=== PATIENT | female | born 1950 | race Caucasian/White ===

== ENCOUNTER 2017-12-01 08:30 | Day surgery (SDC) | payer MEDICARE ==
[~2017-12-01] VITALS: Ht 152.4 cm; Wt 94.3 kg
[~2017-12-01 08:30] MED LIST: ADVIL MIGRAI200 M1 OR; ALLOPURINOL100 MG OR; ALLOPURINOL100 MG PO; AMOXICILLIN500 MG PO; ASPIRIN 81 LOW81 MG PO; BACLOFEN10 MG PO; BIAXIN500 M1 PO; BUPROPION150 M1 PO; CALCIUM + D600 MG OR; CALCIUM500 M5 PO; CIPROFLOXACN500 MG PO; CLARITIN10 M1 PO; CLONAZEPAM0.5 MG PO; CLONAZEPAM1 M1 OR; CLONAZEPAM1 M1 PO; COBAL-10001000 MCG IJ; CYANOCOBALAM1000 MCG IJ; CYANOCOBALAM1000 MCG IM; DIFLUCAN150 MG PO; E400400 UNIT OR; FISH OIL1000 MG PO; FISH OIL1400 MG PO; FLEXERIL5 M1 PO; FLONASE NASAL50 MCG; FLUTICASONE50 MCG; GARLIC1000 MG OR; HYDROCHLOROT25 MG PO; LAMICTAL100 M1 OR; LAMICTAL100 M1 PO; LAMICTAL150 M1 PO; LEVOTHROID88 MCG PO; LEVOTHYROXIN100 MC1 OR; LEVOTHYROXIN100 MC1 PO; LEVOTHYROXIN50 MC1 PO; LEVOTHYROXIN75 MC1 OR; LEVOTHYROXIN75 MC1 PO; LEVOTHYROXIN88 MC1 PO; LIPITOR10 M1 PO; LIPITOR20 M1 PO; LISINOP/HCTZ1 TAB PO; LISINOPRIL10 MG PO; LITHIUM CARB300 MG PO; LORAZEPAM0.5 MG PO; LOTRISON1 EX; LOVASTATIN20 MG PO; MACROBID100 MG PO; MAXEPA1000 M1 PO; MEDDOSEPAK PO; METRONIDAZOL500 MG PO; MIRTAZAPINE15 MG PO; NITROFURANTN100 MG PO; OMEGA 3340 MG OR; OMEPRAZOLE20 M1 PO; OMEPRAZOLE20 MG PO; PANTOPRAZOLE SO40 M1 PO; PEPCID20 MG PO; PRILOSEC20 MG PO; PROTONIX40 M2 PO; RISPERDAL0.25 MG PO; SIMVASTATIN20 MG OR; SIMVASTATIN20 MG PO; SYNTHROID88 MCG PO; TRAMADOL HCL50 MG PO; TRILEPTAL150 M1 PO; TYLENO1 OR; VITAMIN D2000 UNI1 OR; VITAMIN D50000 UNT OR; WELCHOL625 MG PO; ZETIA10 MG PO; ZITHROMAX500 MG PO; ZPAK OR; [UNRECOGNIZED DRUG - OTHER] PO; [UNRECOGNIZED DRUG - OTHER] PO; [UNRECOGNIZED DRUG - OTHER] XX
[2017-12-01 11:12] VITALS: BP 139/63
== END 2017-12-01 11:35 | disposition home or self-care (01) ==
LOC: ENDO 08:30
PROVIDERS: ATTEND Surgery
PROC: 0DJD8ZZ Inspection of Lower Intestinal Tract, Via Natural or Artificial Opening Endoscopic (ICD-10-PCS; principal; 2017-12-01)
DX: Z12.11 Encounter for screening for malignant neoplasm of colon (principal); K57.30 Diverticulosis of large intestine without perforation or abscess without bleeding

== ENCOUNTER 2019-07-25 08:52 | Inpatient (IN) | payer MEDICARE ==
[~2019-07-25] VITALS: Ht 152.4 cm; Wt 96.2 kg
[2019-07-25 10:06] LABS: HEMATOCRIT 40.1 % (37.0-47.0); HEMOGLOBIN 13.5 g/dl (12.0-16.0); IMMATURE GRANULOCYTES 0.7 % (0.0-5.0); MEAN CELL VOLUME 92.4 fL CALC (80.0-100.0); MEAN CORPUSCULAR HGB 31.1 pG CALC (26.0-32.0); MEAN CORPUSCULAR HGB CONC 33.7 g/L CALC (32.0-36.0); NEUT# 10.33 thou/uL (2.00-7.15); RED BLOOD COUNT 4.34 mill/uL (4.20-5.60)
[2019-07-25 10:19] LABS: ALBUMIN 4.8 g/dL (3.2-5.0); AMYLASE 120 u/l (30-110); BUN 20 mg/dL (8-23); BUN/CREATININE RATIO 15 (12-20 (CALC)); CARBON DIOXIDE 24 mmol/l (22-30); CHLORIDE 97 mmol/l (95-108); CREATININE 1.3 mg/dL (0.5-1.0); ETHYL ALCOHOL 0 mg/dl (0-30); GFR 41 ML/MIN (>=60 (CALC)); GFR FOR AFR.AMER. 49 ML/MIN (>=60 (CALC)); LIPASE 497 u/l (23-300); MAGNESIUM 2.3 mg/dL (1.6-2.3); SODIUM 133 mmol/l (137-146); TOTAL PROTEIN 7.9 g/dL (6.3-8.2)
[2019-07-25 10:20] LABS: ALKALINE PHOSPHATASE 143 u/l (38-126); ANION GAP 15 (6-22 (CALC)); BILIRUBIN, TOTAL 1.1 mg/dL (0.0-1.4); POTASSIUM 2.5 mmol/l (3.5-5.1); SGOT/AST 74 u/l (9-36)
[2019-07-25 10:38] LABS: URINE BLOOD DIPSTICK SMALL (NEGATIVE); URINE COLOR YELLOW; URINE GLUCOSE - DIPSTICK NEGATIVE (NEGATIVE); URINE KETONE TRACE mg/dL (NEGATIVE); URINE NITRITE - DIPSTICK NEGATIVE (Negative); URINE PROTEIN - DIPSTICK 100 mg/dL (NEG-TRACE); URINE UROBILINOGEN - DIPSTICK 0.2 E.U./dL (0.2)
[2019-07-25 10:42] LABS: BARBITURATES NEGATIVE (NEGATIVE); COCAINE NEGATIVE (NEGATIVE); METHADONE NEGATIVE (NEGATIVE); OXCYCODONE NEGATIVE (NEGATIVE); TETRAHYDROCANNABIONOL NEGATIVE (NEGATIVE); TRICYLIC ANTIDEPRESSANTS NEGATIVE (NEGATIVE)
[2019-07-25 10:50] LABS: URINE BILIRUBIN - DIPSTICK NEGATIVE (NEGATIVE); URINE LEUK ESTERASE MODERATE (NEGATIVE)
[2019-07-25 10:53] LABS: URINE EPITHELIAL CELLS FEW EPI/hpf (0-FEW); URINE SQUAMOUS EPITHELIAL CELL FEW EPI/hpf (0-FEW)
[2019-07-25 10:54] LABS: URINE BACTERIA FEW hpf
[2019-07-25 13:26] VITALS: BP 148/63
[2019-07-25 15:30] VITALS: BP 140/71
[2019-07-25 19:20] VITALS: BP 122/50
[2019-07-26 04:07] VITALS: BP 121/69
[2019-07-26 05:25] LABS: HEMATOCRIT 34.7 % (37.0-47.0); MEAN CELL VOLUME 94.3 fL CALC (80.0-100.0); MEAN CORPUSCULAR HGB 31.3 pG CALC (26.0-32.0); MEAN CORPUSCULAR HGB CONC 33.1 g/L CALC (32.0-36.0); RED BLOOD COUNT 3.68 mill/uL (4.20-5.60); RED CELL DISTRI WIDTH 12.9 % (11.5-15.5)
[2019-07-26 05:26] LABS: HEMOGLOBIN 11.5 g/dl (12.0-16.0)
[2019-07-26 05:48] LABS: ANION GAP 9 (6-22 (CALC)); BUN 11 mg/dL (8-23); BUN/CREATININE RATIO 13 (12-20 (CALC)); CARBON DIOXIDE 22 mmol/l (22-30); CHLORIDE 106 mmol/l (95-108); CREATININE 0.9 mg/dL (0.5-1.0); GFR > 60 ML/MIN (>=60 (CALC)); GFR FOR AFR.AMER. > 60 ML/MIN (>=60 (CALC)); POTASSIUM 2.5 mmol/l (3.5-5.1); SODIUM 135 mmol/l (137-146)
[2019-07-26 07:15] VITALS: BP 130/57
[2019-07-26 11:25] VITALS: BP 126/60
[2019-07-26 17:15] VITALS: BP 125/64
[2019-07-26 19:13] VITALS: BP 106/61
[2019-07-26 23:55] VITALS: BP 145/67
[2019-07-27 05:01] VITALS: BP 124/60
[2019-07-27 07:00] LABS: ANION GAP 9 (6-22 (CALC)); BUN 5 mg/dL (8-23); BUN/CREATININE RATIO 6 (12-20 (CALC)); CARBON DIOXIDE 20 mmol/l (22-30); CHLORIDE 112 mmol/l (95-108); CREATININE 0.8 mg/dL (0.5-1.0); GFR > 60 ML/MIN (>=60 (CALC)); GFR FOR AFR.AMER. > 60 ML/MIN (>=60 (CALC)); POTASSIUM 3.1 mmol/l (3.5-5.1); SODIUM 138 mmol/l (137-146)
[2019-07-27 08:38] VITALS: BP 126/63
[2019-07-27 11:00] VITALS: BP 105/63
[2019-07-27 14:25] VITALS: BP 126/63
[2019-07-27 18:46] VITALS: BP 123/43
[2019-07-28 00:23] VITALS: BP 140/74
[2019-07-28 03:55] VITALS: BP 114/74
[2019-07-28 07:39] LABS: ANION GAP 11 (6-22 (CALC)); BUN 5 mg/dL (8-23); BUN/CREATININE RATIO 6 (12-20 (CALC)); CARBON DIOXIDE 17 mmol/l (22-30); CHLORIDE 112 mmol/l (95-108); CREATININE 0.8 mg/dL (0.5-1.0); GFR > 60 ML/MIN (>=60 (CALC)); GFR FOR AFR.AMER. > 60 ML/MIN (>=60 (CALC)); POTASSIUM 3.3 mmol/l (3.5-5.1); SODIUM 137 mmol/l (137-146)
[2019-07-28 07:55] VITALS: BP 150/78
[2019-07-28 11:37] VITALS: BP 151/70
[2019-07-28 16:11] VITALS: BP 144/70
[2019-07-28 20:00] VITALS: BP 137/72
[2019-07-29] VITALS: BP 155/74
[2019-07-29 04:00] VITALS: BP 155/74
[2019-07-29 08:00] VITALS: BP 149/71
[2019-07-29 12:00] VITALS: BP 169/77
[2019-07-29] MEDS ORDERED: DOXYCYCL HYC100 M4 PO (16:44)
[2019-07-29 16:48] VITALS: BP 160/79
== END 2019-07-29 17:10 | disposition home or self-care (01) | DRG 92 ==
LOC: ED 08:52 → ED-I 11:00 → ED 11:26 → MS2 11:27
PROVIDERS: Nurse Practitioner Family; ADMIT Internal Medicine; ATTEND Internal Medicine
PROC: 3E0234Z Introduction of Serum, Toxoid and Vaccine into Muscle, Percutaneous Approach (ICD-10-PCS; principal; 2019-07-27)
DX: G92 Toxic encephalopathy (principal); N39.0 Urinary tract infection, site not specified; R11.2 Nausea with vomiting, unspecified; R19.7 Diarrhea, unspecified; T43.595A Adverse effect of other antipsychotics and neuroleptics, initial encounter; E86.0 Dehydration; E87.6 Hypokalemia; F31.9 Bipolar disorder, unspecified; I10 Essential (primary) hypertension; Z23 Encounter for immunization; R19.5 Other fecal abnormalities
CPT/HCPCS: J1650

== ENCOUNTER 2023-04-08 18:03 | Observation (INO) | payer MEDICARE ==
[2023-04-08] VITALS (14 sets, daily range): BP systolic 107–175; BP diastolic 59–112
[~2023-04-08] VITALS: Ht 152.4 cm; Wt 102.0 kg
[~2023-04-08 18:03] MED LIST changes: +DOXYCYCL HYC100 M4 PO
--- NOTE | 2023-04-08 18:15 | NUR ---
PT REPORT SHE IS SENT BY PCP R/T ELEVATED LITHIUM LEVEL THAT WAS DRAWN ON 04/06/23. PT HAS NO COMPLAINTS AT THIS TIME.
--- NOTE | 2023-04-08 19:30 | NUR ---
Reassessment of patient completed. No distress noted.
[2023-04-08 20:36] LABS: BASO% 0.2 % (0-3); EOS% 0.2 % (0-8); HEMOGLOBIN 12.6 g/dl (12.0-16.0); IMMATURE GRANULOCYTES 0.6 % (0.0-5.0); LYMPH% 17.5 % (15-41); MEAN CELL VOLUME 101.8 fL CALC (80.0-100.0); MEAN CORPUSCULAR HGB 32.1 pG CALC (26.0-32.0); MEAN CORPUSCULAR HGB CONC 31.5 g/dL CAL (32.0-36.0); MONO% 4.4 % (2-13); NEUT# 12.49 thou/uL (2.00-7.15); NEUT% 77.1 % (42-76); RED BLOOD COUNT 3.93 mill/uL (4.20-5.60); RED CELL DISTRI WIDTH 13.4 % (11.5-15.5)
[2023-04-08 20:46] LABS: ALBUMIN 4.4 g/dL (3.2-5.0); ALKALINE PHOSPHATASE 132 u/l (38-126); ANION GAP 13 (6-22 (CALC)); BILIRUBIN, TOTAL 0.8 mg/dL (0.02-1.3); BUN 15 mg/dL (8-23); BUN/CREATININE RATIO 17 (12-20 (CALC)); CARBON DIOXIDE 22 mmol/l (22-30); CHLORIDE 103 mmol/l (95-108); CREATININE 0.9 mg/dL (0.5-1.0); ETHYL ALCOHOL 0 mg/dl (0-30); GFR FOR AFR.AMER. > 60 ML/MIN (>=60 (CALC)); GFR OTHER RACES > 60 ML/MIN (>=60 (CALC)); POTASSIUM 3.5 mmol/l (3.5-5.1); SGOT/AST 53 u/l (9-36); SODIUM 135 mmol/l (137-146); TOTAL PROTEIN 7.5 g/dL (6.3-8.2)
[2023-04-08] MEDS ORDERED: LOSARTAN POTASS50 MG PO (21:36)
[2023-04-08] MEDS ORDERED: MEDDOSEPAK PO (21:39)
--- NOTE | 2023-04-08 22:03 | NUR ---
PATIENT PLACED ON INPATIENT BED
--- NOTE | 2023-04-08 22:08 | NUR ---
TRANSITION OF CARE REPORT TO MASOOD LAM
[2023-04-08 22:10] LABS: URINE BILIRUBIN - DIPSTICK Negative (NEGATIVE); URINE BLOOD DIPSTICK Negative (NEGATIVE); URINE GLUCOSE - DIPSTICK Negative (NEGATIVE); URINE KETONE Negative (NEGATIVE); URINE NITRITE - DIPSTICK Negative (Negative); URINE PH 6.5 (4.5-8.0); URINE PROTEIN - DIPSTICK Negative (NEG-TRACE); URINE UROBILINOGEN - DIPSTICK 0.2 E.U./dL (0.2)
[2023-04-08 22:11] LABS: URINE COLOR Yellow; URINE LEUK ESTERASE Small (NEGATIVE)
[2023-04-08 22:20] LABS: URINE SQUAMOUS EPITHELIAL CELL FEW EPI/hpf (0-FEW)
[2023-04-09] VITALS (76 sets, daily range): BP systolic 84–174; BP diastolic 53–132
--- NOTE | 2023-04-09 07:13 | NUR ---
report rec'd from tag machine operator rn
--- NOTE | 2023-04-09 08:05 | NUR ---
breakfast tray given to pt.
--- NOTE | 2023-04-09 08:09 | NUR ---
pt alert and oriented x 4. no apparent distress
--- NOTE | 2023-04-09 11:28 | NUR ---
pt in room waiting for inpatient bed. no apparent distress.
--- NOTE | 2023-04-09 18:00 | NUR ---
PT ARRIVED TO MED SURG RM [id number] FROM ER, REPORT RECEIVED. PT IS ALERT AND ORIENTED X3, PT HAS C/O HEADACHE AT 5/10 ON PAIN SCALE AT THIS TIME. IV SITE # 20 TO LAC CLEAN AND INTACT WITH D5 1/2 NS INFUSING @ 100 ML/HR. PT LUNGS CLEAR. ABD SOFT WITH ACTIVE BS. PT SKIN CLEAN AND INTACT. RLE EDEMA WITH +1 EDEMA AND LLE WITH +2 PITING EDEMA. PT AMBULATES WTH STANDBY ASSIST TO BATHROOM FOR TOILETING NEEDS. PT HAS CALL LIGHT WITHIN REACH AND SAFETY MEASURES IN PLACE AT THIS TIME.
--- NOTE | 2023-04-09 19:24 | NUR ---
PATIENT RESTING SPOUSE AT BEDSIDE. BP CHECKED. NO DISTRESS NOTED ON EXAM. CALL LIGHT WITHIN REACH.
[2023-04-10] VITALS (13 sets, daily range): BP systolic 123–183; BP diastolic 43–79
--- NOTE | 2023-04-10 00:10 | NUR ---
PATIENT SLEEPING NO CHANGES. NO DISTRESS NOTED. CALL LIGHT WITHIN REACH.
--- NOTE | 2023-04-10 03:54 | NUR ---
PATIENT SLEEPING NO CHANGES. CALL LIGHT WITHIN REACH.
[2023-04-10 05:21] LABS: HEMATOCRIT 38.7 % (37.0-47.0); HEMOGLOBIN 12.2 g/dl (12.0-16.0); MEAN CELL VOLUME 102.9 fL CALC (80.0-100.0); MEAN CORPUSCULAR HGB 32.4 pG CALC (26.0-32.0); MEAN CORPUSCULAR HGB CONC 31.5 g/dL CAL (32.0-36.0); RED BLOOD COUNT 3.76 mill/uL (4.20-5.60); RED CELL DISTRI WIDTH 13.3 % (11.5-15.5)
[2023-04-10 05:45] LABS: ALBUMIN 3.7 g/dL (3.2-5.0); ALKALINE PHOSPHATASE 134 u/l (38-126); ANION GAP 10 (6-22 (CALC)); BILIRUBIN, TOTAL 0.9 mg/dL (0.02-1.3); BUN 11 mg/dL (8-23); BUN/CREATININE RATIO 14 (12-20 (CALC)); CARBON DIOXIDE 25 mmol/l (22-30); CHLORIDE 105 mmol/l (95-108); CREATININE 0.8 mg/dL (0.5-1.0); GFR FOR AFR.AMER. > 60 ML/MIN (>=60 (CALC)); GFR OTHER RACES > 60 ML/MIN (>=60 (CALC)); MAGNESIUM 1.9 mg/dL (1.6-2.3); POTASSIUM 3.5 mmol/l (3.5-5.1); SGOT/AST 65 u/l (9-36); SODIUM 136 mmol/l (137-146); TOTAL PROTEIN 6.3 g/dL (6.3-8.2)
--- NOTE | 2023-04-10 07:05 | NUR ---
REPORT RECEIVED FROM DAYLINRN
--- NOTE | 2023-04-10 08:30 | NUR ---
PT RESTING IN SEMI FOWLERS POSITION,A&O X3;ASSESSMENT COMPLETED;PT DENIES ANY CURRENT PAIN OR DISCOMFORTS,PAIN SCALE AND REPORTING EDUCATED;RESPIRATIONS EVEN AND UNLABORED ON RA,CLEAR/DIMINISHED LUNG SOUNDS;ABDOMEN DISTENDED/SOFT ON PALPATION AND ACTIVE IN ALL 4 QUADRANTS;STRONG PEDAL PULSES;EDEMA NOTED TO BLE, ENCOURAGED ELEVATION;SKIN INTACT;TELE MONITORING IN PLACE;#20G TO RAC INFUSING D5 1/2 NS @ 100ML/HR,SITE APPEARS HEALTHY;PT DENIES ANY ADDITIONAL NEEDS AND IS ENCOURAGED TO CALL FOR ASSISTANCE IF NEEDED;FALL PRECAUTIONS IN PLACE WITH BED IN THE LOWEST POSITION AND CALL LIGHT IN REACH;FREQUENT ROUNDS MADE.
--- NOTE | 2023-04-10 11:37 | NUR ---
AT BEDSIDE DISCUSSING POC WITH PT.
--- NOTE | 2023-04-10 11:40 | NUR ---
PT RESTING IN SEMI FOWLERS POSITION WITH SPOUSE AT BEDSIDE;RESPIRATIONS EVEN AND UNLABORED ON RA;PT DENIES ANY CURRENT PAIN OR NEEDS;TELE MONITORING IN PLACE;IV SITE PATENT INFUSING WITH EASE PER ORDER;PT DENIES ANY ADDITIONAL NEEDS AND IS ENCOURAGED TO CALL FOR ASSISTANCE IF NEEDED;FALL PRECAUTIONS IN PLACE WITH BED IN THE LOWEST POSITION AND CALL LIGHT IN REACH;FREQUENT ROUNDS MADE.
--- NOTE | 2023-04-10 15:14 | NUR ---
PT REPORTS HEADACHE PAIN RATING 4/10 ON THE PAIN SCALE AND REQUESTS PRN TYLENOL. PT MEDICATED WITH PRN TYLENOL 650MG PO AT THIS TIME.FREQUENT ROUNDS MADE.
--- NOTE | 2023-04-10 15:20 | NUR ---
PT BLOOD PRESSURE ASSESSED AT THIS TIME DUE TO HEADACHE PAIN AND INCREASED TREMORS. BP 183/76 HR 74. NOTIFIED AND NEW ORDERS RECEIVED.
--- NOTE | 2023-04-10 16:05 | NUR ---
PT RESTING IN SEMI FOWLERS POSITION WITH SPOUSE AT BEDSIDE;PT REPORTS SLIGHT INPROVEMENT IN HEADACHE PAIN AFTER PRN TYLENOL ADMINISTRATION;RESPIRATIONS EVEN AND UNLABORED ON RA;PT DENIES ANY ADDITIONAL NEEDS;IV SITE PATENT;TELE MONITORING IN PLACE;AWAITING BLOOD PRESSURE MEDICATION ORDERS FROM AT THIS TIME;ENCOURAGED PT TO CALL FOR ASSISTANCE IF NEEDED;FALL PRECAUTIONS REMAIN IN PLACE WITH CALL LIGHT IN REACH;FREQUENT ROUNDS MADE.
--- NOTE | 2023-04-10 16:29 | NUR ---
AT BEDSIDE DISCUSSING POC.
--- NOTE | 2023-04-10 16:52 | NUR ---
RT AT BEDSIDE OBTAINING EKG.
--- NOTE | 2023-04-10 18:08 | NUR ---
PT RESTING IN SEMI FOWLERS POSITION;RESPIRATIONS EVEN AND UNLABORED ON RA;BP RE-CHECK 123/43 HR 60;TELE MONITORING IN PLACE;IV SITE PATENT;PT DENIES ANY ADDITIONAL NEEDS;CALL LIGHT IN REACH;FREQUENT ROUNDS MADE.
--- NOTE | 2023-04-10 20:22 | NUR ---
NURSE TO NURSE REPORT RECEIVED. NO DISTRESS NOTED ON EXAM. PATIENT IS RESTING REPORTS NO PAIN. CALL LIGHT WITHIN REACH STATED UNDERSTAND ON HOW TO USE IT. PLAN OF CARE ONGOING.
--- NOTE | 2023-04-11 00:32 | NUR ---
PATIENT SLEEPING NO DISTRESS NOTED. CALL LIGHT WITHIN REACH.
[2023-04-11 03:18] VITALS: BP 140/44
--- NOTE | 2023-04-11 05:11 | NUR ---
PATIENT HELPED UP TO CHAIR. REPORTS NO PAIN. CALL LIGHT WITHIN REACH.
[2023-04-11 05:32] LABS: BASO% 0.7 % (0-3); EOS% 4.4 % (0-8); HEMATOCRIT 40.1 % (37.0-47.0); HEMOGLOBIN 12.7 g/dl (12.0-16.0); IMMATURE GRANULOCYTES 0.4 % (0.0-5.0); LYMPH% 34.8 % (15-41); MEAN CELL VOLUME 100.8 fL CALC (80.0-100.0); MEAN CORPUSCULAR HGB 31.9 pG CALC (26.0-32.0); MEAN CORPUSCULAR HGB CONC 31.7 g/dL CAL (32.0-36.0); MONO% 6.6 % (2-13); NEUT# 5.48 thou/uL (2.00-7.15); NEUT% 53.1 % (42-76); RED BLOOD COUNT 3.98 mill/uL (4.20-5.60); RED CELL DISTRI WIDTH 13.7 % (11.5-15.5)
[2023-04-11 05:48] LABS: ALBUMIN 3.8 g/dL (3.2-5.0); ALKALINE PHOSPHATASE 139 u/l (38-126); ANION GAP 9 (6-22 (CALC)); BILIRUBIN, TOTAL 0.8 mg/dL (0.02-1.3); BUN 7 mg/dL (8-23); BUN/CREATININE RATIO 9 (12-20 (CALC)); CARBON DIOXIDE 24 mmol/l (22-30); CHLORIDE 108 mmol/l (95-108); CREATININE 0.8 mg/dL (0.5-1.0); GFR FOR AFR.AMER. > 60 ML/MIN (>=60 (CALC)); GFR OTHER RACES > 60 ML/MIN (>=60 (CALC)); MAGNESIUM 1.9 mg/dL (1.6-2.3); POTASSIUM 3.8 mmol/l (3.5-5.1); SGOT/AST 53 u/l (9-36); SODIUM 138 mmol/l (137-146); TOTAL PROTEIN 6.6 g/dL (6.3-8.2)
[2023-04-11 06:34] VITALS: BP 137/49
--- NOTE | 2023-04-11 07:15 | NUR ---
REPORT RECEIVED FROM DAYLINRN
[2023-04-11 08:55] VITALS: BP 165/66
--- NOTE | 2023-04-11 09:00 | NUR ---
PT RESTING IN SEMI FOWLERS POSITION,A&O X3;VS OBTAINED AND ASSESSMENT COMPLETED;PT DENIES ANY CURRENT PAIN OR DISCOMFORTS,PAIN SCALE AND REPORTING EDUCATED;RESPIRATIONS EVEN AND UNLABORED ON RA;ABDOMEN DISTENDED/SOFT ON PALPATION AND ACTIVE IN ALL 4 QUADRANTS;STRONG PEDAL PULES;SKIN INTACT;TELE MONITORING IN PLACE;#20G TO RAC FLUSHED AND PATENT,SITE APPEARS HEALTHY;PT DENIES ANY ADDITIONAL NEEDS AND IS ENCOURAGED TO CALL FOR ASSISTANCE IF NEEDED;FALL PRECAUTIONS IN PLACE WITH BED IN THE LOWEST POSITION AND CALL LIGHT IN REACH;FREQUENT ROUNDS MADE
--- NOTE | 2023-04-11 11:01 | NUR ---
AT BEDSIDE DISCUSSING POC WITH PT.
--- NOTE | 2023-04-11 11:35 | NUR ---
PT OOB RESTING IN RECLINER EATING LUNCH;RESPIRATIONS EVEN AND UNLABORED ON RA;PT DENIES ANY CURRENT PAIN OR NEEDS;IV SITE PATENT AND TELE MONITORING IN PLACE;PT EDUCATED ON PLANS TO D/C HOME THIS AFTERNOON AND QUIN ANY QUESTIONS OR NEEDS;ENCOURAGED TO CALL FOR ASSISTANCE IF NEEDED;CALL LIGHT IN REACH;FREQUENT ROUNDS MADE.
[2023-04-11 11:45] VITALS: BP 134/77
--- NOTE | 2023-04-11 14:03 | NUR ---
ALL DISCHARGE INSTRUCTIONS PROVIDED AT THIS TIME. PT INSTRUCTED TO F/U WITH PCP AND HAVE LITHIUM REPEATED.RETURN TO ER FOR AN WORSENING SYMPTOMS AND STOP TAKING STEROID PACK;PT AND SPOUSE VERBALIZE UNDERSTANDING;IV SITE REMOVED WITH CATHETER INTACT AND TELE MONITORING D/C;WC TO BE PROVIDED FOR D/C HOME.SPOUSE TO TRANSPORT PT HOME.
--- NOTE | 2023-04-11 14:16 | NUR ---
Discharge instructions given. Patient verbalizes understanding of same. Discharged in stable condition via Wheelchair to Home with spouse. All belongings sent with pt. PT TRANSPORTED TO [facility] IN STABLE CONDITION VIA ACCOMPANIED BY [facility] AND SPOUSE.ALL PERSONAL BELONGINGS LEFT WITH PT AT THIS TIME.SPOUSE TO TRANSPORT PT HOME.
== END 2023-04-11 14:23 | disposition home or self-care (01) ==
LOC: ED 18:03 → ED-I 19:19 → ED 22:49 → ED-I 22:50 → MS2 04-09 18:20
PROVIDERS: Emergency Medicine; ADMIT Student in an Organized Health Care Education/Training Program; ATTEND Student in an Organized Health Care Education/Training Program
DX: G92.8 Other toxic encephalopathy (principal); T43.595A Adverse effect of other antipsychotics and neuroleptics, initial encounter; E83.52 Hypercalcemia; I10 Essential (primary) hypertension; E03.9 Hypothyroidism, unspecified; F31.9 Bipolar disorder, unspecified; M10.9 Gout, unspecified; Z86.73 Personal history of transient ischemic attack (TIA), and cerebral infarction without residual deficits
CPT/HCPCS: J1650